=== PATIENT | male | born 1985 | race Two or more races ===

== ENCOUNTER 2024-06-11 21:52 | Emergency (ER) | payer SELFPAY ==
[~2024-06-11] VITALS: Ht 172.7 cm; Wt 70.6 kg
[2024-06-12 00:35] VITALS: BP 133/76; PULSE 89; RESP 18; TEMP 98.7; O2SAT 98
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
[2024-06-12] MEDS: SILVER SULFADIAZINE 1 % TOPICAL CREAM 50GM TOP ONE (00:59)
== END 2024-06-12 01:29 | disposition home or self-care (01) ==
LOC: ER 21:52
DX: T22.311A Burn of third degree of right forearm, initial encounter (principal); X08.8XXA Exposure to other specified smoke, fire and flames, initial encounter; Y93.89 Activity, other specified; Y92.89 Other specified places as the place of occurrence of the external cause; Y99.8 Other external cause status
CPT/HCPCS: 16020